=== PATIENT | male | born 1985 | race Caucasian/White ===

== ENCOUNTER 2019-09-20 15:46 | Emergency (ER) | payer BC, OTHER ==
[2019-09-20 15:53] VITALS: BP 134/78; PULSE 77; RESP 18; TEMP 97.9
[2019-09-20] MEDS ORDERED: IBUPROFEN 600 MG STARTER PACK 4 TAB BTL PO STA (16:56)
--- NOTE | 2019-09-20 16:56 | ED ---
General Adult HPI - General Chief complaint: Abdominal Pain Stated complaint: hemorrhoids Time Seen by Provider: 09/20/19 15:55 Source: patient, RN notes reviewed, old records reviewed Mode of arrival: ambulatory Limitations: no limitations - History of Present Illness Initial comments: 34-year-old male patient presents to ED with chief complaint of painful external hemorrhoid. Patient IS has been bothering him for approximately one week. Reports that he has started to use [id number] nifedipine, analgesia. She reports is still causing him discomfort. Denies any other complaints. Systemic: Pt denies fatigue, fever/chills, rash. Pt denies weakness, night sweats, weight loss. Neuro: Pt denies headache, visual disturbances, syncope or pre-syncope. HEENT: Pt denies ocular discharge or irritation, otalgia, rhinorrhea, pharyngitis or notable lymphadenopathy. Cardiopulmonary: Pt denies chest pain, SOB, heart palpitations, dyspnea on exertion. Abdominal/GI: Pt denies abdominal pain, n/v/d. : Pt denies dysuria, burning w/ urination, frequency/urgency. Denies new onset urinary or bowel incontinence. MSK: Pt denies myalgia, loss of strength or function in extremities. Neuro: Pt denies new onset weakness, paresthesias. - Related Data Home Medications Medication Instructions Recorded Confirmed No Known Home Medications 12/28/15 12/28/15 Allergies Allergy/AdvReac Type Severity Reaction Status Date / Time Penicillins Allergy Unknown Verified 09/20/19 15:53 Review of Systems ROS Statement: Those systems with pertinent positive or pertinent negative responses have been documented in the HPI. ROS Other: All systems not noted in ROS Statement are negative. Past Medical History Past Medical History: No Reported History Additional Past Medical History / Comment(s): hemorroids History of Any Multi-Drug Resistant Organisms: None Reported Past Surgical History: Orthopedic Surgery Additional Past Surgical History / Comment(s): rt shoulder Past Psychological History: No Psychological Hx Reported Smoking Status: Current every day smoker Past Alcohol Use History: Abuse Past Drug Use History: Heroin General Exam - General Exam Comments Initial Comments: Constitutional: NAD, AOX3, Pt has pleasant affect. HEENT: NC/AT, trachea midline, neck supple, no lymphadenopathy. Posterior pharynx non erythematous, without exudates. External ears appear normal, without discharge. Mucous membranes moist. Eyes PERRLA, EOM intact. There is no scleral icterus. No pallor noted. Cardiopulmonary: RRR, no murmurs, rubs or gallops, no JVD noted. Lungs CTAB in anterior and posterior schmidt. No peripheral edema. Abdominal exam: Abdomen soft and non-distended. Abdomen non-tender to palpation in all 4 quadrants. Bowel sounds active in LLQ. No hepatosplenomegaly. No ecchymosis Neuro: CN II-XII grossly intact. No nuchal rigidity. No raccon eyes, no bain sign, no hemotympanum. No cervical spinal tenderness. MSK: No posterior calf tenderness bilaterally, homans sign negative bilaterally. Posterior tibialis and radial pulse +2 bilaterally. Sensation intact in upper and lower extremities. Full active ROM in upper and lower extremities, 5/5 stregnth. Rectal: NonThrombosed external hemorrhoid noted. Limitations: no limitations Course Vital Signs 09/20/19 15:51 Temperature 97.9 F Pulse Rate 77 Respiratory 18 Rate Blood Pressure 134/78 O2 Sat by Pulse 99 Oximetry Medical Decision Making - Medical Decision Making 34-year-old male patient presents to the chief complaint of painful hemorrhoid. Patient vital signs are stable, afebrile. Hemorrhoid is nonthrombosed on exam. Patient already using bulk laxatives, topical ointments. Will be discharged with her condition and ibuprofen outpatient GI follow-up. We'll also begin using sits baths. We'll return to ER condition worsens. Case discussed with Dr. Germain. Disposition Clinical Impression: External hemorrhoid Disposition: HOME SELF-CARE Condition: Stable Instructions (If sedation given, give patient instructions): Hemorrhoids (ED) Additional Instructions: Continue to use treatments that you have been doing. Encourage sits baths, bulk laxatives. Use ibuprofen as needed for pain. Follow-up with GI consult tomorrow. Return to ER if condition worsens. Follow-up with primary care provider in 1-2 days. Is patient prescribed a controlled substance at d/c from ED?: No Referrals: Marcelo Garrison MD [Primary Care Provider] - 1-2 days Ekaterina Poole MD [STAFF PHYSICIAN] - 1-2 days
[2019-09-20] MEDS ORDERED: KETOROLAC 60 MG/2 ML VIAL IM STA (16:58)
== END 2019-09-20 17:15 | disposition home or self-care (01) ==
LOC: EC 15:46
DX: K64.4 Residual hemorrhoidal skin tags (principal); F17.200 Nicotine dependence, unspecified, uncomplicated; Z88.0 Allergy status to penicillin
CPT/HCPCS: 99284; 96372; J1885

== ENCOUNTER → 2021-10-02 | Outpatient (CLI) | payer OTHER | END | disposition home or self-care (01) | LOC: LABWHC1 12:09 | PROVIDERS: ATTEND Family Medicine | DX: M79.10 Myalgia, unspecified site (principal); R53.83 Other fatigue; R43.2 Parageusia | CPT/HCPCS: U0003; C9803 ==